=== PATIENT | female | born 1970 | race Caucasian/White ===

== ENCOUNTER 2022-06-13 07:56 | Emergency (ER) | payer MEDICAID ==
[~2022-06-13] VITALS: Ht 167.6 cm; Wt 61.2 kg
[2022-06-13 08:08] VITALS: BP_SYST 147
--- NOTE | 2022-06-13 08:20 | NUR ---
Patient to ER bed 01 to gown for evaluation. Side rails up. Report given to BOOGIE WALLACE
--- NOTE | 2022-06-13 09:00 | NUR ---
patient ambulatory with right facial swollen seen by edp with order parmjit out.
[2022-06-13] MEDS ORDERED: CLIN-142 PO (09:10)
--- NOTE | 2022-06-13 09:16 | NUR ---
Patient given written and verbal discharge instructions and verbalizes understanding. ER MD discussed with patient the results and treatment provided. Patient in stable condition. ID arm band removed. IV catheter removed intact and dressing applied, no active bleeding. Rx of clindamycin given. Patient educated on pain management and to follow up with PMD. Pain Scale0. Opportunity for questions provided and answered. Medication side effect fact sheet provided.
== END 2022-06-13 09:16 | disposition home or self-care (01) ==
LOC: SED 07:56
DX: L03.211 Cellulitis of face (principal); R22.0 Localized swelling, mass and lump, head; F17.200 Nicotine dependence, unspecified, uncomplicated; Z79.899 Other long term (current) drug therapy
CPT/HCPCS: 99283